=== PATIENT | female | born 1990 | race Caucasian/White ===

== ENCOUNTER 2023-06-23 13:55 | Inpatient (IN) | payer MEDICAID, OTHER ==
[2023-06-23 14:54] LABS: Basophils % (A) 1 %; Eosinophils # (A) 0.1 k/uL (0-0.7); Eosinophils % (A) 2 %; HCT 38.8 % (34.0-46.0); HGB 12.4 gm/dL (11.4-16.0); Lymphocytes # (A) 1.9 k/uL (1.0-4.8); Lymphocytes % (A) 43 %; MCH 31.6 pg (25.0-35.0); MCHC 31.8 g/dL (31.0-37.0); MCV 99.3 fL (80.0-100.0); Monocytes # (A) 0.3 k/uL (0-1.0); Monocytes % (A) 7 %; Neutrophils # (A) 1.9 k/uL (1.3-7.7); Neutrophils % (A) 44 %; Platelet Count 107 k/uL (150-450); RBC 3.91 m/uL (3.80-5.40); RDW 12.8 % (11.5-15.5); WBC 4.4 k/uL (3.8-10.6)
[2023-06-23 14:56] LABS: Glucose,Whole Blood 114 mg/dL (70-110)
[2023-06-23] MEDS: SODIUM CHLORIDE 0.9% 1,000 ML IV ONE (15:03)
[2023-06-23 15:09] LABS: ALT 117 U/L (4-34); AST 143 U/L (14-36); Acetaminophen <10.0 ug/mL; African American GFR (CKD) >90 (>60 ml/min/1.73 sqM); Albumin 3.1 g/dL (3.5-5.0); Alcohol <10 mg/dL; Alkaline Phosphatase 78 U/L (38-126); Anion Gap 6 mmol/L; Blood Urea Nitrogen 10 mg/dL (7-17); Calcium 8.6 mg/dL (8.4-10.2); Carbon Dioxide 29 mmol/L (22-30); Chloride 103 mmol/L (98-107); Creatine Kinase 39 U/L (30-135); Glucose 96 mg/dL (74-99); Magnesium 1.5 mg/dL (1.6-2.3); Non-African American GFR(CKD) >90 (>60 ml/min/1.73 sqM); Potassium 3.8 mmol/L (3.5-5.1); Salicylate <1.0 mg/dL; Sodium 138 mmol/L (137-145); Total Bilirubin 0.4 mg/dL (0.2-1.3)
[2023-06-23 15:15] LABS: Partial Thromboplastin Time 25.2 sec (22.0-30.0); Prothrombin Time 10.7 sec (10.0-12.5)
[2023-06-23 15:16] LABS: Amphetamine Screen,Urine Not Detected (NotDetected); Barbiturate Screen,Urine Not Detected (NotDetected); Benzodiazepines Screen,Urine Detected (NotDetected); Cocaine Screen,Urine Not Detected (NotDetected); Methadone Screen, Urine Detected (NotDetected); Opiate Screen,Urine Not Detected (NotDetected); Oxycodone Screen, Urine Not Detected (NotDetected); Phencyclidine Screen,Urine Not Detected (NotDetected); Tricyclic Antidepressant,Urine Not Detected (NotDetected); Urn Cannabinoid Scrn Not Detected (NotDetected)
--- NOTE | 2023-06-23 15:50 | XR ---
EXAMINATION TYPE: XR chest 2V DATE OF EXAM: 06/23/2023 COMPARISON: None INDICATION: Altered mental status TECHNIQUE: Frontal and lateral views of the chest are obtained. FINDINGS: The heart size is normal. The pulmonary vasculature is normal. The lungs are clear. IMPRESSION: 1. No acute pulmonary process.
--- NOTE | 2023-06-23 15:51 | CT ---
EXAMINATION TYPE: CT brain wo con DATE OF EXAM: 06/23/2023 COMPARISON: INDICATION: AMS DLP: 1154.4 mGycm, Automated exposure control for dose reduction was used. CONTRAST: None CT of the brain is performed utilizing 3 mm thick sections through the posterior fossa and 3 mm thick sections through the remaining calvarium. Study is performed within 24 hours of arrival to the hosp ital. No abnormal hyperdensity is present to suggest an acute intracranial hemorrhage. No mass lesion is evident. No acute infarcts are evident. Ventricles and sulci are appropriate for the patient age. There is opacification of maxillary sinuses. Remaining paranasal sinuses and mastoid air cells are cl ear. IMPRESSION: 1. No acute intracranial process. Follow-up MRI could be performed as clinically indicated.
[2023-06-23] MEDS: MAGNESIUM SULFATE-D5W PMX 1 GM in DEXTROSE/WATER 1 100ML.BAG IVPB ONE ×2 (16:56→21:28)
--- NOTE | 2023-06-23 17:45 | ED ---
Altered Mental Status HPI - General Chief Complaint: Altered Mental Status Stated Complaint: AMS Time Seen by Provider: 06/23/23 14:16 Source: EMS, RN notes reviewed Mode of arrival: EMS Limitations: altered mental status - History of Present Illness Initial Comments: 42-year-old female from [place] where she was admitted for cocaine and alcohol abuse several days ago who is brought in today for evaluation because of decreased level of consciousness slurred speech. Unclear whether she had gotten a hold of any other illicit drugs no trauma reported no fevers chills sweats no nausea no vomiting. Patient denies any other drugs. MD Complaint: altered mental status, confusion, decreased responsiveness - Related Data Allergies Allergy/AdvReac Type Severity Reaction Status Date / Time No Known Allergies Allergy Verified 06/23/23 14:20 Review of Systems ROS Statement: Those systems with pertinent positive or pertinent negative responses have been documented in the HPI. ROS Other: All systems not noted in ROS Statement are negative. Past Medical History Past Medical History: No Reported History History of Any Multi-Drug Resistant Organisms: None Reported Past Surgical History: No Surgical Hx Reported Past Psychological History: No Psychological Hx Reported Smoking Status: Current every day smoker Past Alcohol Use History: Abuse Past Drug Use History: Cocaine, Marijuana General Exam - General Exam Comments Initial Comments: This is a well-developed well-nourished awake alert with lethargic and somnolent female who is oriented x 3 Limitations: altered mental status General appearance: alert, lethargic Head exam: Present: atraumatic, normocephalic, normal inspection Eye exam: Present: normal appearance, PERRL, EOMI. Absent: scleral icterus, conjunctival injection, periorbital swelling ENT exam: Present: normal exam, mucous membranes moist Neck exam: Present: normal inspection, full ROM, other (Stridor JVD or bruits). Absent: tenderness, meningismus, lymphadenopathy Respiratory exam: Present: normal lung sounds bilaterally. Absent: respiratory distress, wheezes, rales, rhonchi, stridor Cardiovascular Exam: Present: normal rhythm, tachycardia, normal heart sounds. Absent: systolic murmur, diastolic murmur, rubs, gallop, clicks GI/Abdominal exam: Present: soft, normal bowel sounds. Absent: distended, tenderness, guarding, rebound, rigid Extremities exam: Present: normal inspection, full ROM, normal capillary refill. Absent: tenderness, pedal edema, joint swelling, calf tenderness Back exam: Present: normal inspection Neurological exam: Present: alert, oriented X3, CN II-XII intact Psychiatric exam: Present: normal affect, normal mood Skin exam: Present: warm, dry, intact, normal color. Absent: rash Course Vital Signs 06/23/23 14:15 Temperature 97.2 F L Pulse Rate 120 H Respiratory 22 Rate Blood Pressure 117/89 O2 Sat by Pulse 100 Oximetry Medical Decision Making - Medical Decision Making Patient apparently had responded somewhat to Narcan given by paramedics before arrival. Patient drug screen is positive for methadone and benzodiazepines. CT negative workup for the most part those are negative patient will be admitted for inpatient evaluation. Was pt. sent in by a medical professional or institution (, PA, METAL ROLLING MILL OPERATOR, urgent care, hospital, or group home...) When possible be specific @ -No Did you speak to anyone other than the patient for history (EMS, parent, family, police, friend...)? What history was obtained from this source @ -Medics Did you review nursing and triage notes (agree or disagree)? Why? @ -I reviewed and agree with nursing and triage notes Were old charts reviewed (outside hosp., previous admission, EMS record, old EKG, old radiological studies, urgent care reports/EKG's, group home records)? Report findings @ -[facility] old charts were reviewed Differential Diagnosis (chest pain, altered mental status, abdominal pain women, abdominal pain men, vaginal bleeding, weakness, fever, dyspnea, syncope, headache, dizziness, GI bleed, back pain, seizure, CVA, palpatations, mental health, musculoskeletal)? @ -Altered mental status EKG interpreted by me (3pts min.). @ -As above EKG interpreted by me sinus tachycardia rate of 100 [place] interval 127 QRS duration 90 QT/QTc 333/[address]-T wave changes X-rays interpreted by me (1pt min.). @ -Interpreted by me no acute process CT interpreted by me (1pt min.). @ -ET brain interpreted by me no acute findings U/S interpreted by me (1pt. min.). @ -None done What testing was considered but not performed or refused? (CT, X-rays, U/S, labs)? Why? @ -None What meds were considered but not given or refused? Why? @ -None Did you discuss the management of the patient with other professionals (professionals i.e. , PA, METAL ROLLING MILL OPERATOR, lab, RT, psych nurse, mental health social worker, metal drilling machine operator, teacher, transit authority police officer, case liner)? Give summary @ -No Was smoking cessation discussed for >3mins.? @ -No Was critical care preformed (if so, how long)? @ -No Were there social determinants of health that impacted care today? How? (Homelessness, low income, unemployed, alcoholism, drug addiction, transportation, low edu. Level, literacy, decrease access to med. care, [facility], rehab)? @ -Absence abuse Was there de-escalation of care discussed even if they declined (Discuss DNR or withdrawal of care, Hospice)? DNR status @ -No What co-morbidities impacted this encounter? (DM, HTN, Smoking, COPD, CAD, Cancer, CVA, ARF, Chemo, Hep., AIDS, mental health diagnosis, sleep apnea, morbid obesity)? @ -None Was patient admitted / discharged? Hospital course, mention meds given and route, prescriptions, significant lab abnormalities, going to OR and other pertinent info. @ -Hospital course was admitted for evaluation Undiagnosed new problem with uncertain prognosis? @ -No Drug Therapy requiring intensive monitoring for toxicity (Heparin, Nitro, In sulin, Cardizem)? @ -No Were any procedures done? @ -No Diagnosis/symptom? @ -3 mental status, history of alcohol abuse history of substance abuse Acute, or Chronic, or Acute on Chronic? @ -Acute Uncomplicated (without systemic symptoms) or Complicated (systemic symptoms)? @ -Complicated Side effects of treatment? @ -No Exacerbation, Progression, or Severe Exacerbation? @ -No Poses a threat to life or bodily function? How? (Chest pain, [place], NH, pneumonia, PE, COPD, DKA, ARF, appy, cholecystitis, CVA, Diverticulitis, Homicidal, Suicidal, threat to staff... and all critical care pts) @ -Tensional - Lab Data Result diagrams: 06/23/23 14:43 06/23/23 14:43 Lab Results 06/23/23 06/23/23 06/23/23 Range/Units 14:43 14:43 14:43 WBC 4.4 (3.8-10.6) k/uL RBC 3.91 (3.80-5.40) m/uL Hgb 12.4 (11.4-16.0) gm/dL Hct 38.8 (34.0-46.0) % MCV 99.3 (80.0-100.0) fL MCH 31.6 (25.0-35.0) pg MCHC 31.8 (31.0-37.0) g/dL RDW 12.8 (11.5-15.5) % Plt Count 107 L (150-450) k/uL MPV 9.0 Neutrophils % 44 % Lymphocytes % 43 % Monocytes % 7 % Eosinophils % 2 % Basophils % 1 % Neutrophils # 1.9 (1.3-7.7) k/uL Lymphocytes # 1.9 (1.0-4.8) k/uL Monocytes # 0.3 (0-1.0) k/uL Eosinophils # 0.1 (0-0.7) k/uL Basophils # 0.0 (0-0.2) k/uL PT 10.7 (10.0-12.5) sec INR 1.0 (<1.2) APTT 25.2 (22.0-30.0) sec Sodium (137-145) mmol/L Potassium (3.5-5.1) mmol/L Chloride (98-107) mmol/L Carbon Dioxide (22-30) mmol/L Anion Gap mmol/L BUN (7-17) mg/dL Creatinine (0.52-1.04) mg/dL Est GFR (CKD-EPI)AfAm (>60 ml/min/1.73 sqM) Est GFR (CKD-EPI)NonAf (>60 ml/min/1.73 sqM) Glucose (74-99) mg/dL POC Glucose (mg/dL) (70-110) mg/dL POC Glu Apparel Patternmaker ID Calcium (8.4-10.2) mg/dL Magnesium (1.6-2.3) mg/dL Total Bilirubin (0.2-1.3) mg/dL AST (14-36) U/L ALT (4-34) U/L Alkaline Phosphatase (38-126) U/L Ammonia (<30) umol/L Creatine Kinase (30-135) U/L Troponin I (0.000-0.034) ng/mL Total Protein (6.3-8.2) g/dL Albumin (3.5-5.0) g/dL Urine HCG, Qual (Not Detectd) Salicylates mg/dL Urine Opiates Screen Not Detected (NotDetected) Ur Oxycodone Screen Not Detected (NotDetected) Urine Methadone Screen Detected H (NotDetected) Acetaminophen ug/mL Ur Barbiturates Screen Not Detected (NotDetected) U Tricyclic Antidepress Not Detected (NotDetected) Ur Phencyclidine Scrn Not Detected (NotDetected) Ur Amphetamines Screen Not Detected (NotDetected) U Methamphetamines Scrn Not Detected (NotDetected) U Benzodiazepines Scrn Detected H (NotDetected) Urine Cocaine Screen Not Detected (NotDetected) U Marijuana (THC) Screen Not Detected (NotDetected) Serum Alcohol mg/dL 06/23/23 06/23/23 06/23/23 Range/Units 14:43 14:43 14:43 WBC (3.8-10.6) k/uL RBC (3.80-5.40) m/uL Hgb (11.4-16.0) gm/dL Hct (34.0-46.0) % MCV (80.0-100.0) fL MCH (25.0-35.0) pg MCHC (31.0-37.0) g/dL RDW (11.5-15.5) % Plt Count (150-450) k/uL MPV Neutrophils % % Lymphocytes % % Monocytes % % Eosinophils % % Basophils % % Neutrophils # (1.3-7.7) k/uL Lymphocytes # (1.0-4.8) k/uL Monocytes # (0-1.0) k/uL Eosinophils # (0-0.7) k/uL Basophils # (0-0.2) k/uL PT (10.0-12.5) sec INR (<1.2) APTT (22.0-30.0) sec Sodium 138 (137-145) mmol/L Potassium 3.8 (3.5-5.1) mmol/L Chloride 103 (98-107) mmol/L Carbon Dioxide 29 (22-30) mmol/L Anion Gap 6 mmol/L BUN 10 (7-17) mg/dL Creatinine 0.53 (0.52-1.04) mg/dL Est GFR (CKD-EPI)AfAm >90 (>60 ml/min/1.73 sqM) Est GFR (CKD-EPI)NonAf >90 (>60 ml/min/1.73 sqM) Glucose 96 (74-99) mg/dL POC Glucose (mg/dL) (70-110) mg/dL POC Glu Apparel Patternmaker ID Calcium 8.6 (8.4-10.2) mg/dL Magnesium 1.5 L (1.6-2.3) mg/dL Total Bilirubin 0.4 (0.2-1.3) mg/dL AST 143 H (14-36) U/L ALT 117 H (4-34) U/L Alkaline Phosphatase 78 (38-126) U/L Ammonia (<30) umol/L Creatine Kinase 39 (30-135) U/L Troponin I <0.012 (0.000-0.034) ng/mL Total Protein 6.0 L (6.3-8.2) g/dL Albumin 3.1 L (3.5-5.0) g/dL Urine HCG, Qual Not Detected (Not Detectd) Salicylates <1.0 mg/dL Urine Opiates Screen (NotDetected) Ur Oxycodone Screen (NotDetected) Urine Methadone Screen (NotDetected) Acetaminophen <10.0 ug/mL Ur Barbiturates Screen (NotDetected) U Tricyclic Antidepress (NotDetected) Ur Phencyclidine Scrn (NotDetected) Ur Amphetamines Screen (NotDetected) U Methamphetamines Scrn (NotDetected) U Benzodiazepines Scrn (NotDetected) Urine Cocaine Screen (NotDetected) U Marijuana (THC) Screen (NotDetected) Serum Alcohol <10 mg/dL 06/23/23 06/23/23 Range/Units 14:43 14:54 WBC (3.8-10.6) k/uL RBC (3.80-5.40) m/uL Hgb (11.4-16.0) gm/dL Hct (34.0-46.0) % MCV (80.0-100.0) fL MCH (25.0-35.0) pg MCHC (31.0-37.0) g/dL RDW (11.5-15.5) % Plt Count (150-450) k/uL MPV Neutrophils % % Lymphocytes % % Monocytes % % Eosinophils % % Basophils % % Neutrophils # (1.3-7.7) k/uL Lymphocytes # (1.0-4.8) k/uL Monocytes # (0-1.0) k/uL Eosinophils # (0-0.7) k/uL Basophils # (0-0.2) k/uL PT (10.0-12.5) sec INR (<1.2) APTT (22.0-30.0) sec Sodium (137-145) mmol/L Potassium (3.5-5.1) mmol/L Chloride (98-107) mmol/L Carbon Dioxide (22-30) mmol/L Anion Gap mmol/L BUN (7-17) mg/dL Creatinine (0.52-1.04) mg/dL Est GFR (CKD-EPI)AfAm (>60 ml/min/1.73 sqM) Est GFR (CKD-EPI)NonAf (>60 ml/min/1.73 sqM) Glucose (74-99) mg/dL POC Glucose (mg/dL) 114 H (70-110) mg/dL POC Glu Apparel Patternmaker ID Natalia Landaverde Calcium (8.4-10.2) mg/dL Magnesium (1.6-2.3) mg/dL Total Bilirubin (0.2-1.3) mg/dL AST (14-36) U/L ALT (4-34) U/L Alkaline Phosphatase (38-126) U/L Ammonia 42 H (<30) umol/L Creatine Kinase (30-135) U/L Troponin I (0.000-0.034) ng/mL Total Protein (6.3-8.2) g/dL Albumin (3.5-5.0) g/dL Urine HCG, Qual (Not Detectd) Salicylates mg/dL Urine Opiates Screen (NotDetected) Ur Oxycodone Screen (NotDetected) Urine Methadone Screen (NotDetected) Acetaminophen ug/mL Ur Barbiturates Screen (NotDetected) U Tricyclic Antidepress (NotDetected) Ur Phencyclidine Scrn (NotDetected) Ur Amphetamines Screen (NotDetected) U Methamphetamines Scrn (NotDetected) U Benzodiazepines Scrn (NotDetected) Urine Cocaine Screen (NotDetected) U Marijuana (THC) Screen (NotDetected) Serum Alcohol mg/dL Disposition Clinical Impression: Altered mental status, Delirium due to general medical condition, Alcohol abuse, Substance abuse Disposition: ADMITTED IP TO THIS [facility] Condition: Fair Referrals: None,Stated [Primary Care Provider] - 1-2 days Time of Disposition: 16:50 Decision Date: 06/23/23 Decision Time: 16:50
[2023-06-23] MEDS ORDERED: NALOXONE 0.4 MG/ML 1 ML VIAL IV PRN (17:49)
[2023-06-23] MEDS: SODIUM CHLORIDE 0.9% 1,000 ML IV SCH (18:09)
[2023-06-23] MEDS ORDERED: Magnesium Replacement Protocol 1 EACH MISC MISCELLANE PRN (19:16)
[2023-06-23] MEDS: LACTULOSE 20 GM/30 ML CUP PO ONE (21:28)
[2023-06-23] MEDS: ONDANSETRON 4 MG/2 ML VIAL IVP SCH (21:28)
[2023-06-24] MEDS: PANTOPRAZOLE 40 MG/10 ML VIAL IVP SCH (09:14)
[2023-06-24 09:43] LABS: ALT 98 U/L (8-44); AST 112 U/L (13-35); Albumin 3.2 g/dL (3.8-4.9); Albumin/Globulin Ratio 1.45 Ratio (1.60-3.17); Alkaline Phosphatase 61 U/L (41-126); Blood Urea Nitrogen 7.8 mg/dL (9.0-27.0); Calcium 8.4 mg/dL (8.7-10.3); Carbon Dioxide 28.7 mmol/L (21.6-31.8); Chloride 104 mmol/L (96-109); Globulin 2.2 g/dL (1.6-3.3); Glucose 76 mg/dL (70-110); Magnesium 2.1 mg/dL (1.5-2.4); Potassium 4.1 mmol/L (3.5-5.5); Sodium 140 mmol/L (135-145); Total Bilirubin 0.3 mg/dL (0.3-1.2); Total Protein 5.4 g/dL (6.2-8.2)
--- NOTE | 2023-06-24 12:15 | US ---
EXAMINATION TYPE: US abdomen limited DATE OF EXAM: 06/24/2023 Exam done portable COMPARISON: NONE CLINICAL INDICATION: Female, 32 years old with history of Transaminitis; TECHNIQUE: Multiple sonographic images of the right upper quadrant are obtained. FINDINGS: EXAM MEASUREMENTS: Liver Length: 15.2 cm Gallbladder Wall: 0.2 cm CBD: 0.4 cm Right Kidney: 11.7 x 5.3 x 4.8 cm Pancreas: visualized portions wnl, limited by overlying midline bowel gas Liver: heterogeneous Gallbladder: wnl Evidence for sonographic Orellana's sign: no CBD: visualized portions wnl, limited by overlying bowel gas Right Kidney: wnl IMPRESSION: 1. Markedly coarsened echotexture of the liver possibly indicating cirrhosis. Clinical correlation is recommended. MRI of the liver might be useful for further evaluation if clinically indicated. 2. Normal gallbladder and biliary tree. 3. Limited evaluation of the pancreas by bowel gas.
[2023-06-24] MEDS: busPIRone HCl 10 MG TAB PO SCH (12:16)
[2023-06-24] MEDS: LOPERAMIDE 2 MG CAP PO PRN (12:16)
[2023-06-24] MEDS: GABAPENTIN 400 MG CAP PO SCH (12:17)
[2023-06-24] MEDS: LACTULOSE 20 GM/30 ML CUP PO SCH (12:18)
[2023-06-24] MEDS: DIVALPROEX 500 MG TABLET.DR PO SCH (12:18)
[2023-06-24] MEDS: PALIPERIDONE 6 MG TAB.ER.24 PO SCH (12:18)
[2023-06-24] MEDS ORDERED: LORazepam 1 MG/0.5 ML VIAL IV PRN (13:08)
[2023-06-24] MEDS ORDERED: LORazepam 0.5 MG TAB PO PRN (13:08)
--- NOTE | 2023-06-24 13:08 | P.HPIM ---
History of Present Illness H&P Date: 06/24/23 Chief Complaint: Altered mental status * 32-year-old patient with history of polysubstance use presents from [place] where she was admitted for history of alcohol use disorder, history of cocaine use with presentation of decreased level of consciousness and impaired speech. At the time of presentation in ER patient did appear disoriented and a CT head was obtained which was negative for acute intracranial process * Further workup initiated in ER included serum chemistry which showed sodium 138 potassium 3.8 chloride 103 BUN 10 creatinine 0.53, CBC showed WBC 4.4 he moglobin 12.4 hematocrit 38 platelet count of 107 INR of 1 liver profile obtained showed ALT of 117, AST of 143 bilirubin of 0.4 magnesium of 1.5 troponin within normal limits urine drug screen was obtained which was positive for methadone, benzodiazepine * Patient states she went to [place] yesterday and had last drink was actually yesterday just before going to [place] * Patient to be admitted to medical floor with consultation from neurology for evaluation to rule out seizure episode REVIEW OF SYSTEMS: Confusion, slurred speech on admission CONSTITUTIONAL: No fever, no malaise, no fatigue. HEENT: No recent visual problems or hearing problems. Denied any sore throat. CARDIOVASCULAR: No chest pain, orthopnea, PND, no palpitations, no syncope. PULMONARY: No shortness of breath, no cough, no hemoptysis. GASTROINTESTINAL: No diarrhea, no nausea, no vomiting, no abdominal pain. NEUROLOGICAL: Confusion, slurred speech on admission HEMATOLOGICAL: Denies any bleeding or petechiae. GENITOURINARY: Denies any burning micturition, frequency, or urgency. MUSCULOSKELETAL/RHEUMATOLOGICAL: Denies any joint pain, swelling, or any muscle pain. ENDOCRINE: Denies any polyuria or polydipsia. PHYSICAL EXAMINATION: GENERAL: The patient is alert and oriented x3, not in any acute distress. Well developed, well nourished. HEENT: Pupils are round and equally reacting to light. EOMI. Normocephalic, atraumatic. No pharyngeal erythema. No thyromegaly. CARDIOVASCULAR: S1 and S2 present. No murmurs, rubs, or gallops. PULMONARY: Chest is clear to auscultation, no wheezing or crackles. ABDOMEN: Soft, nontender, nondistended, normoactive bowel sounds. No palpable organomegaly. MUSCULOSKELETAL: No joint swelling or deformity. EXTREMITIES: No cyanosis, clubbing, or pedal edema. NEUROLOGICAL: Assessment and plan * Acute toxic metabolic encephalopathy * Elevated ammonia levels * Acute transaminitis secondary to polysubstance use * Alcohol use disorder * Hypomagnesemia * In regards to toxic metabolic encephalopathy, CT head negative, ammonia levels elevated, continue patient on lactulose * In regards to hepatic encephalopathy, continue lactulose, follow-up on liver profile, ultrasound right upper quadrant ordered * Regards to history of alcohol use, patient was detoxed and was at [place] * In regards to hypomagnesemia magnesium levels replaced * Status full code Past Medical History Past Medical History: No Reported History History of Any Multi-Drug Resistant Organisms: None Reported Past Surgical History: No Surgical Hx Reported Past Psychological History: No Psychological Hx Reported Smoking Status: Current every day smoker Past Alcohol Use History: Abuse Past Drug Use History: Cocaine, Marijuana Medications and Allergies Home Medications Medication Instructions Recorded Confirmed Type Acetaminophen [Tylenol] 650 mg PO Q4H PRN MDD 2,600mg 06/23/23 06/23/23 History Calcium, Magnesium, Zinc, With 1 tab PO TID PRN 06/23/23 06/23/23 History Vitamin D Chlorpheniramine Maleate 4 mg PO Q4H PRN 06/23/23 06/23/23 History [Chlor-Trimeton] Divalproex Sodium [Depakote] 500 mg PO BID 06/23/23 06/23/23 History Gabapentin [Neurontin] 400 mg PO TID 06/23/23 06/23/23 History Hyoscyamine Sulfate [Levsin] 0.125 mg PO QID PRN 06/23/23 06/23/23 History Ibuprofen [Motrin Ib] 600 mg PO Q6H PRN 06/23/23 06/23/23 History LORazepam [Ativan] 1 - 2 mg PO Q4H 06/23/23 06/23/23 History Loperamide HCl [Imodium A-D] 4 mg PO QID PRN MDD 16 mg 06/23/23 06/23/23 History Methadone HCl [Methadone Intensol] 105 mg PO DAILY 06/23/23 06/23/23 History Multivitamins, Thera [Multivitamin 1 tab PO DAILY 06/23/23 06/23/23 History (formulary)] Paliperidone [Invega] 6 mg PO DAILY 06/23/23 06/23/23 History Thiamine [Vitamin B-1] 100 mg PO DAILY 06/23/23 06/23/23 History busPIRone HCl [Buspar] 20 mg PO TID 06/23/23 06/23/23 History ondansetron HCL [Zofran] 8 mg PO Q6H PRN 06/23/23 06/23/23 History traZODone HCL [Desyrel] 50 mg PO HS PRN 06/23/23 06/23/23 History Allergies Allergy/AdvReac Type Severity Reaction Status Date / Time CONTROL PILLS Allergy Unknown Uncoded 06/23/23 18:31 Physical Exam Vitals: Vital Signs Temp Pulse Pulse Resp BP BP Pulse Ox 06/24/23 08:45 98.4 F 67 18 119/86 97 06/24/23 08:00 75 17 110/75 98 06/24/23 05:52 67 19 110/75 98 06/24/23 05:00 74 20 121/74 96 06/24/23 01:04 82 19 120/100 95 06/23/23 23:42 61 13 98/76 98 06/23/23 21:35 87 22 103/70 96 06/23/23 21:00 85 14 104/84 98 06/23/23 14:15 97.2 F L 120 H 22 117/89 100 Results CBC & Chem 7: 06/23/23 14:43 06/24/23 03:04 Labs: Abnormal Lab Results - Last 24 Hours (Table) 06/23/23 06/23/23 06/23/23 Range/Units 14:43 14:43 14:43 Plt Count 107 L (150-450) k/uL POC Glucose (mg/dL) (70-110) mg/dL Magnesium 1.5 L (1.6-2.3) mg/dL AST 143 H (14-36) U/L ALT 117 H (4-34) U/L Ammonia (<30) umol/L Total Protein 6.0 L (6.3-8.2) g/dL Albumin 3.1 L (3.5-5.0) g/dL Urine Methadone Screen Detected H (NotDetected) U Benzodiazepines Scrn Detected H (NotDetected) 06/23/23 06/23/23 06/24/23 Range/Units 14:43 14:54 08:22 Plt Count (150-450) k/uL POC Glucose (mg/dL) 114 H (70-110) mg/dL Magnesium (1.6-2.3) mg/dL AST (14-36) U/L ALT (4-34) U/L Ammonia 42 H 55 H (<30) umol/L Total Protein (6.3-8.2) g/dL Albumin (3.5-5.0) g/dL Urine Methadone Screen (NotDetected) U Benzodiazepines Scrn (NotDetected)
[2023-06-24] MEDS: LORazepam 1 MG TAB PO PRN (15:08)
[2023-06-24] MEDS: ACETAMINOPHEN TAB 325 MG TAB PO PRN (19:35)
[2023-06-24] MEDS: traZODone HCL 50 MG TAB PO PRN (22:32)
--- NOTE | 2023-06-24 23:36 | P.CNNES ---
History of Present Illness Consult date: 06/24/23 Requesting physician: Danielle Rhoades Reason for Consult: Impaired mentation concern for seizure from withdrawal from substance use History of Present Illness: Patient is a 32-year-old female with history of polysubstance abuse, seizure disorder, was brought to the hospital by ambulance yesterday at 1:55 PM for seizure. Patient was admitted to [facility] for polysubstance abuse, on , 06/21/2023. Patient states that her first seizure was in early 20s which she felt was a withdrawal seizure. Patient has history of shooting cocaine, and alcoholism. She usually drinks 1 pint of vodka per day, daily for last 3 years. She used to live with her ex- and has 4 children. However patient claims that he "threw her out on the street", and he is taking care of the kids. Patient has become homeless in the last couple weeks, and living out in the street. Patient gets seizures about once or twice a year. Patient was admitted to [facility] voluntarily and she does not know what happened and why she was transferred, probably she was not acting right. EMS flowsheet is not available in the chart. Patient at present complaining of stomach hurting bad, not feeling good, lethargic. She claims that she takes gabapentin for seizures. She has not seen a neurologist. Does not remember if she ever had an EEG done. Vital signs on arrival blood pressure 117/89, pulse rate 120, temperature 97.2. Blood test shows normal CBC, PT PTT, normal Chem-7. AST is 143, ALT 117, CK is normal, troponin negative. Urine hCG negative, urine drug screen positive for methadone and benzodiazepine. EKG shows sinus tachycardia, CT brain without contrast showed no acute process. I personally reviewed CT head agree with the findings. Patient's abdominal ultrasound revealed markedly coarsened echotexture of the liver possibly indicating cirrhosis. Clinical correlation is recommended. MRI of the liver might be useful for further evaluation. Normal gallbladder and biliary tree. Patient has history of smoking and shooting cocaine, as well as alcoholism as mentioned above. Review of Systems Significant for whole body hurting, abdominal pain, denies any fever or chills although she feels hot/cold all the time. Denies any nausea vomiting diarrhea. Stomach is hurting. Patient does admit having anxiety but no depression. Denies any cough or phlegm. All other review of system reviewed noncontributory. Past Medical History Past Medical History: No Reported History History of Any Multi-Drug Resistant Organisms: None Reported Past Surgical History: No Surgical Hx Reported Past Psychological History: No Psychological Hx Reported Smoking Status: Current every day smoker Past Alcohol Use History: Abuse Past Drug Use History: Cocaine, Marijuana Medications and Allergies Home Medications Medication Instructions Recorded Confirmed Type Acetaminophen [Tylenol] 650 mg PO Q4H PRN MDD 2,600mg 06/23/23 06/23/23 History Calcium, Magnesium, Zinc, With 1 tab PO TID PRN 06/23/23 06/23/23 History Vitamin D Chlorpheniramine Maleate 4 mg PO Q4H PRN 06/23/23 06/23/23 History [Chlor-Trimeton] Divalproex Sodium [Depakote] 500 mg PO BID 06/23/23 06/23/23 History Gabapentin [Neurontin] 400 mg PO TID 06/23/23 06/23/23 History Hyoscyamine Sulfate [Levsin] 0.125 mg PO QID PRN 06/23/23 06/23/23 History Ibuprofen [Motrin Ib] 600 mg PO Q6H PRN 06/23/23 06/23/23 History LORazepam [Ativan] 1 - 2 mg PO Q4H 06/23/23 06/23/23 History Loperamide HCl [Imodium A-D] 4 mg PO QID PRN MDD 16 mg 06/23/23 06/23/23 History Methadone HCl [Methadone Intensol] 105 mg PO DAILY 06/23/23 06/23/23 History Multivitamins, Thera [Multivitamin 1 tab PO DAILY 06/23/23 06/23/23 History (formulary)] Paliperidone [Invega] 6 mg PO DAILY 06/23/23 06/23/23 History Thiamine [Vitamin B-1] 100 mg PO DAILY 06/23/23 06/23/23 History busPIRone HCl [Buspar] 20 mg PO TID 06/23/23 06/23/23 History ondansetron HCL [Zofran] 8 mg PO Q6H PRN 06/23/23 06/23/23 History traZODone HCL [Desyrel] 50 mg PO HS PRN 06/23/23 06/23/23 History Allergies Allergy/AdvReac Type Severity Reaction Status Date / Time CONTROL PILLS Allergy Unknown Uncoded 06/23/23 18:31 Physical Examination - Vital Signs Vital Signs: Vital Signs Temp Pulse Pulse Resp BP BP Pulse Ox 06/24/23 14:05 97.5 F L 77 16 119/76 96 06/24/23 08:45 98.4 F 67 18 119/86 97 06/24/23 08:00 75 17 110/75 98 06/24/23 05:52 67 19 110/75 98 06/24/23 05:00 74 20 121/74 96 06/24/23 01:04 82 19 120/100 95 06/23/23 23:42 61 13 98/76 98 06/23/23 21:35 87 22 103/70 96 06/23/23 21:00 85 14 104/84 98 Patient is a young female, in no acute distress. Patient is alert awake oriented to time place and person. Patient knows it is June 2023 and that she is in hospital and she believes it is in [facility]. She is actually from [facility] not from this side of [facility]. Speech and language functions are normal. Patient can name and repeat very well. No aphasia or dysarthria. Attention, concentration and fund of knowledge is adequate. On cranial nerve examination, pupils are equal, round and reacting to light, visual bender are full on confrontation, with no neglect on double simultaneous stimulation. Extraocular muscles are intact with no nystagmus. Face is symmetric, tongue protrudes to the midline. Palatal elevation and sensation normal, hearing and shoulder shrug normal, facial sensation normal. On muscle strength testing, there is no pronator drift and the strength is normal in arms and legs distally and proximally. Deep tendon reflexes are symmetric 1+ in the biceps and brachioradialis, 1+ at the knees, 2 ankles and plantars downgoing. Sensory to touch is equal with no neglect on double simultaneous stimulation. Cerebellar function showed some shakiness but no ataxia for [id number] testing. No dysdiadochokinesia. No ataxia for [id number] testing on either side. Tone and bulk of muscles normal. Gait deferred.. On general examination, there is no carotid bruit or murmur, S1-S2 audible. Chest is clear on consultation. Abdomen is soft nontender. No organomegaly, bowel sounds present. Peripheral pulses are present. No peripheral edema. Results - Laboratory Findings CBC and BMP: 06/23/23 14:43 06/24/23 03:04 Abnormal Lab Findings: Abnormal Labs 06/23/23 06/23/23 06/23/23 14:43 14:43 14:43 Plt Count 107 L BUN Creatinine POC Glucose (mg/dL) Calcium Magnesium 1.5 L AST 143 H ALT 117 H Ammonia Total Protein 6.0 L Albumin 3.1 L Albumin/Globulin Ratio Urine Methadone Screen Detected H U Benzodiazepines Scrn Detected H 06/23/23 06/23/23 06/24/23 14:43 14:54 03:04 Plt Count BUN 7.8 L Creatinine 0.5 L POC Glucose (mg/dL) 114 H Calcium 8.4 L Magnesium AST 112 H ALT 98 H Ammonia 42 H Total Protein 5.4 L Albumin 3.2 L Albumin/Globulin Ratio 1.45 L Urine Methadone Screen U Benzodiazepines Scrn 06/24/23 08:22 Plt Count BUN Creatinine POC Glucose (mg/dL) Calcium Magnesium AST ALT Ammonia 55 H Total Protein Albumin Albumin/Globulin Ratio Urine Methadone Screen U Benzodiazepines Scrn Assessment and Plan Assessment: * Patient with history of polysubstance abuse, admitted to [facility] for rehab on 06/21/2023, brought to the hospital for altered mental status. Patient states she has history of seizures, which she felt was related to substance use. Patient denies having any workup performed in the past. * Encephalopathy, likely hepatic encephalopathy with elevated ammonia 42. * History of alcoholism * History of substance use * Abnormal ultrasound, possible cirrhosis. * Anxiety disorder * Tremors, possibly from withdrawal, anxiety disorder versus side effect of Depakote. * Homeless state Plan: * Patient's seizure was likely related to alcohol and substance withdrawal. * Check EEG to evaluate for any epileptiform activity. * Patient currently on Depakote 500 mg twice daily. Depakote not a good choice because of her pre-existing possible cirrhosis, elevated ammonia which can get further worse from Depakote. I would suggest switching to another medication. * Further management based upon results of EEG. * Lactulose, for possible hepatic encephalopathy. * Thiamine, folate, multivitamin. * Watch for delirium tremens. * Patient informed of [place] state law of no driving unless seizure-free for 6 months, climbing ladders, operating dangerous machinery or unsupervised swimming. * sheetmetal trades worker intervention. * Dr. Jorje Anaya will resume neurology service in the morning. * Thank you for the consult.
[2023-06-25 08:33] LABS: HCT 34.3 % (37.2-46.3); HGB 11.1 g/dL (12.0-15.0); MCHC 32.4 g/dL (32.0-37.0); MCV 95.8 FL (80.0-97.0); Mean Platelet Volume 12.2 FL (9.5-12.2); NRBC Per 100 WBC 0 X 10*3/uL (0.00-0.01); Platelet Count 124 X 10*3/uL (140-440); RBC 3.58 X 10*6/uL (4.10-5.20); RDW 13.2 % (11.5-14.5); WBC 6.41 X 10*3/uL (4.50-10.00)
[2023-06-25 08:42] LABS: ALT 83 U/L (8-44); AST 87 U/L (13-35); Albumin 3.2 g/dL (3.8-4.9); Albumin/Globulin Ratio 1.52 Ratio (1.60-3.17); Alkaline Phosphatase 60 U/L (41-126); Blood Urea Nitrogen 4.5 mg/dL (9.0-27.0); Calcium 8.2 mg/dL (8.7-10.3); Carbon Dioxide 27.6 mmol/L (21.6-31.8); Chloride 105 mmol/L (96-109); Globulin 2.1 g/dL (1.6-3.3); Glucose 79 mg/dL (70-110); Sodium 141 mmol/L (135-145); Total Bilirubin 0.3 mg/dL (0.3-1.2); Total Protein 5.3 g/dL (6.2-8.2)
[2023-06-25] MEDS: FOLIC ACID 1 MG TAB PO SCH (09:22)
[2023-06-25] MEDS: THIAMINE 100 MG TAB PO SCH (09:22)
--- NOTE | 2023-06-25 13:33 | P.PN ---
Subjective Progress Note Date: 06/25/23 * 32-year-old patient with history of polysubstance use presents from [place] where she was admitted for history of alcohol use disorder, history of cocaine use with presentation of decreased level of consciousness and impaired speech. At the time of presentation in ER patient did appear disoriented and a CT head was obtained which was negative for acute intracranial process * Further workup initiated in ER included serum chemistry which showed sodium 138 potassium 3.8 chloride 103 BUN 10 creatinine 0.53, CBC showed WBC 4.4 hemoglobin 12.4 hematocrit 38 platelet count of 107 INR of 1 liver profile obtained showed ALT of 117, AST of 143 bilirubin of 0.4 magnesium of 1.5 troponin within normal limits urine drug screen was obtained which was positive for methadone, benzodiazepine * Patient states she went to [place] yesterday and had last drink was actually yesterday just before going to [place] * Patient to be admitted to medical floor with consultation from neurology for evaluation to rule out seizure episode * 06/25/23: Patient seen and evaluated bedside, liver profile trending down, ultrasound liver completed shows coarse echotexture concern for cirrhosis. Liver profile shows improvement in AST 87 ALT 83, confusion has improved, continue patient on lactulose PHYSICAL EXAMINATION: GENERAL: The patient is alert and oriented x3, not in any acute distress. Well developed, well nourished. HEENT: Pupils are round and equally reacting to light. EOMI. Normocephalic, atraumatic. No pharyngeal erythema. No thyromegaly. CARDIOVASCULAR: S1 and S2 present. No murmurs, rubs, or gallops. PULMONARY: Chest is clear to auscultation, no wheezing or crackles. ABDOMEN: Soft, nontender, nondistended, normoactive bowel sounds. No palpable organomegaly. MUSCULOSKELETAL: No joint swelling or deformity. EXTREMITIES: No cyanosis, clubbing, or pedal edema. NEUROLOGICAL: Assessment and plan * Acute toxic metabolic encephalopathy * Alcohol liver disease * Acute transaminitis secondary to polysubstance use * Alcohol use disorder * Hypomagnesemia * In regards to toxic metabolic encephalopathy, CT head negative, ammonia levels elevated, continue patient on lactulose * In regards to hepatic encephalopathy, continue lactulose, follow-up on liver profile, ultrasound right upper quadrant ordered * Regards to history of alcohol use, patient was detoxed and was at [facility] * In regards to hypomagnesemia magnesium levels replaced * Status full code Objective - Vital Signs Vital signs: Vital Signs Temp 97.8 F 06/25/23 07:53 Pulse 78 06/25/23 07:53 Resp 16 06/25/23 07:53 BP 117/81 06/25/23 07:53 Pulse Ox 99 06/25/23 07:53 FiO2 Intake & Output 06/24/23 06/25/23 06/25/23 18:59 06:59 18:59 Weight 78.018 kg Other: # Voids 1 4 4 - Labs CBC & Chem 7: 06/25/23 03:50 06/25/23 03:50 Labs: Abnormal Lab Results - Last 24 Hours (Table) 06/25/23 06/25/23 Range/Units 03:50 03:50 RBC 3.58 L (4.10-5.20) X 10*6/uL Hgb 11.1 L (12.0-15.0) g/dL Hct 34.3 L (37.2-46.3) % Plt Count 124 L (140-440) X 10*3/uL BUN 4.5 L (9.0-27.0) mg/dL Creatinine 0.5 L (0.6-1.5) mg/dL BUN/Creatinine Ratio 9.00 L (12.00-20.00) Ratio Calcium 8.2 L (8.7-10.3) mg/dL AST 87 H (13-35) U/L ALT 83 H (8-44) U/L Total Protein 5.3 L (6.2-8.2) g/dL Albumin 3.2 L (3.8-4.9) g/dL Albumin/Globulin Ratio 1.52 L (1.60-3.17) Ratio
[2023-06-25] MEDS: PANTOPRAZOLE 40 MG TABLET PO SCH (16:42)
--- NOTE | 2023-06-25 19:53 | P.PN ---
Subjective Progress Note Date: 06/25/23 I am seeing the patient for the first time during this admission. Please refer to Dr. Cook's note for further details. The patient she does have history of seizure and she was told by neurologist as an outpatient with stress-induced. She was started on Depakote for her mood recently a few weeks ago according to the patient. She does not recall the neurologist name she was following up with as an outpatient. She states that she does have heavy alcohol use as well as history of cocaine use and tobacco use. She stated that she used to use heroin in the past but has been sober for years. She was sent from [place] because of fusion. She currently feels she is doing much better and denies any headache, focal weakness and feels she is longer confused. Objective - Vital Signs Vital signs: Vital Signs Temp 98.4 F 06/25/23 14:00 Pulse 92 06/25/23 14:00 Resp 16 06/25/23 14:00 BP 119/64 06/25/23 14:00 Pulse Ox 97 06/25/23 14:00 FiO2 Intake & Output 06/25/23 06/25/23 06/26/23 06:59 18:59 06:59 Intake Total 250 Balance 250 Intake: Oral 250 Other: # Voids 4 4 - Exam General: Lying in bed and is not in acute distress. Neuro: The patient is awake alert oriented to self place. Correctly states the year but states the month is May. She correctly names objects correctly such as pen and watch. She is following some commands. No aphasia no neglect. Visual bender are full to confrontation. Extraocular movements intact no nystagmus. No facial weakness. No dysarthria Motor strength is 5 out of 5 throughout Cerebellar is normal [id number]. - Labs CBC & Chem 7: 06/25/23 03:50 06/25/23 03:50 Labs: Abnormal Lab Results - Last 24 Hours (Table) 06/25/23 06/25/23 Range/Units 03:50 03:50 RBC 3.58 L (4.10-5.20) X 10*6/uL Hgb 11.1 L (12.0-15.0) g/dL Hct 34.3 L (37.2-46.3) % Plt Count 124 L (140-440) X 10*3/uL BUN 4.5 L (9.0-27.0) mg/dL Creatinine 0.5 L (0.6-1.5) mg/dL BUN/Creatinine Ratio 9.00 L (12.00-20.00) Ratio Calcium 8.2 L (8.7-10.3) mg/dL AST 87 H (13-35) U/L ALT 83 H (8-44) U/L Total Protein 5.3 L (6.2-8.2) g/dL Albumin 3.2 L (3.8-4.9) g/dL Albumin/Globulin Ratio 1.52 L (1.60-3.17) Ratio Assessment and Plan Assessment: * Patient with history of polysubstance abuse, admitted to [facility] for lawrence ab on 06/21/2023, brought to the hospital for altered mental status. Patient states she has history of seizures, which she felt was related to substance use. Patient denies having any workup performed in the past. * Encephalopathy, likely hepatic encephalopathy with elevated ammonia 42. * History of seizures and she was told it was stress-induced by outpatient neurologist according to the patient. * History of alcoholism * History of substance use * Abnormal ultrasound, possible cirrhosis. * Anxiety disorder * Tremors, possibly from withdrawal, anxiety disorder versus side effect of Depakote. * Homeless state Plan: * Patient's seizure was likely related to alcohol and substance withdrawal. * Check EEG to evaluate for any epileptiform activity: Preliminary is no seizure or discharged * Patient currently on Depakote 500 mg twice daily states she was started on it recently by psychiatry team. I agree Depakote not a good choice because of her pre-existing possible cirrhosis, elevated ammonia which can get further worse from Depakote. I would suggest switching to another medication. Consider Lamictal but I will defer that decision to Dr. Koroma. * Lactulose, for possible hepatic encephalopathy. * On Thiamine, folate, multivitamin. * Watch for delirium tremens. * Patient informed of [place] state law of no driving unless seizure-free for 6 months, climbing ladders, operating dangerous machinery or unsupervised swimming. * With the patient to follow-up with her neurologist as an outpatient within 3 to 4 weeks. * Was counseled on cessation of alcohol, polysubstance use. No further neurological workup. Will sign off. Please reconsult if needed. Time with Patient: Less than 30
[2023-06-26] MEDS: LORazepam 1 MG TAB PO PRN (01:28)
[2023-06-26 05:26] LABS: ALT 95 U/L (4-34); African American GFR (CKD) >90 (>60 ml/min/1.73 sqM); Anion Gap 6 mmol/L; Blood Urea Nitrogen 6 mg/dL (7-17); Calcium 8.5 mg/dL (8.4-10.2); Carbon Dioxide 26 mmol/L (22-30); Chloride 106 mmol/L (98-107); Globulin 3.1 g/dL; Glucose 84 mg/dL (74-99); Non-African American GFR(CKD) >90 (>60 ml/min/1.73 sqM); Sodium 138 mmol/L (137-145); Total Bilirubin 0.5 mg/dL (0.2-1.3)
[2023-06-26 05:34] LABS: Total Protein 6.2 g/dL (6.3-8.2)
[2023-06-26 05:35] LABS: AST 109 U/L (14-36); Albumin 3.1 g/dL (3.5-5.0); Alkaline Phosphatase 64 U/L (38-126)
--- NOTE | 2023-06-26 05:52 | EEG ---
ELECTROENCEPHALOGRAM REPORT CLINICAL HISTORY: This is a 32-year-old woman with history of seizure and substance use, who has altered mental status. The video EEG is obtained to evaluate for seizure epileptiform activity. RELEVANT MEDICATIONS: Depakote, Neurontin. EEG TYPE: This is a routine 21-channel EEG with video using the 10/20 electrode placement system. DESCRIPTION: Drowsiness and stage 2 sleep state is obtained. There is no awake state noted. During stage II sleep architecture, there is diffuse K-complex with sleep spindles noted. There is no focal slowing. Interictal and ictal are none. ACTIVATION PROCEDURE: Photic stimulation did not evoke a posterior driving response. There is no abnormality during the photic stimulation. Hyperventilation is not performed. CLINICAL INTERPRETATION: The study was noted in drowsy and stage 2 sleep state. There is no focal slowing, epileptiform discharge, or seizure on the EEG. Clinical correlation is recommended. SOL / MOUNIKA: [id number] / MTDD
[2023-06-26 05:58] LABS: HCT 39.2 % (34.0-46.0); HGB 12.5 gm/dL (11.4-16.0); MCH 31.4 pg (25.0-35.0); MCHC 31.9 g/dL (31.0-37.0); MCV 98.5 fL (80.0-100.0); Mean Platelet Volume 9.4; Platelet Count 142 k/uL (150-450); RBC 3.98 m/uL (3.80-5.40); RDW 12.7 % (11.5-15.5)
[2023-06-26] MEDS: METHADONE 5 MG TAB PO SCH (13:30)
[2023-06-26] MEDS: METHADONE 10 MG TAB PO SCH (13:31)
[2023-06-26 15:14] VITALS: BP 93/62; PULSE 91; RESP 16; TEMP 98.3
--- NOTE | 2023-06-29 22:32 | P.DS ---
Providers Date of admission: 06/25/23 07:37 Attending physician: Mary Jackson Consults: 06/24/23 09:13 Consult Physician Routine Consulting Provider: Natasha Cook Consult Reason/Comments: Impaired mentation concern for seizure from withdrawal from substance use Do you want consulting provider notified?: Yes Primary care physician: Physician Nonstaff Hospital Course: Final Diagnosis Acute toxic metabolic encephalopathy Alcohol liver disease Acute transaminitis secondary to polysubstance use Alcohol use disorder Hypomagnesemia Hx of seizures related to alcohol withdrawal started on depakote outpatient Discharge Disposition Patient is stable to return to [facility]. Methadone has been resumed. Electrolytes have normalized. Patient to continue on lactulose. Neurology discussed lamictal vs. depakote but patient to follow up with her known neurologist and will continue on depakote on discharge. Patient informed of [place] state law of no driving unless seizure-free for 6 months, climbing ladders, operating dangerous machinery or unsupervised swimming. Follow up with PCP 2 to 3 days. Hospital Course This is a 32-year-old patient with history of polysubstance use presents from [place] where she was admitted for history of alcohol use disorder, history of cocaine use with presentation of decreased level of consciousness and impaired speech. At the time of presentation in ER patient did appear disoriented and a CT head was obtained which was negative for acute intracranial process. Further workup initiated in ER included serum chemistry which showed sodium 138 potassium 3.8 chloride 103 BUN 10 creatinine 0.53, CBC showed WBC 4.4 hemoglobin 12.4 hematocrit 38 platelet count of 107 INR of 1 liver profile obtained showed ALT of 117, AST of 143 bilirubin of 0.4 magnesium of 1.5 troponin within normal limits urine drug screen was obtained which was positive for methadone, benzodiazepine. Patient was brought in from [place] and last alcoholic beverage was the day before admission. Patient had liver ultrasound done shows coarse echo texture concern for cirrhosis. Liver profile shows improvement in AST 87 ALT 83, confusion has improved, continue patient on lactulose. Neurology was consulted to rule out seizure like activity. She was started on Depakote for her mood recently a few weeks ago according to the patient. EEG to evaluate for any epileptiform activity: Preliminary is no seizure or discharged. She does not recall the neurologist name she was following up with as an outpatient. Patient denies any headache, focal weakness and feels she is longer confused. Patient has no focal neurological deficits. No chest pain, no shortness of breath. Hemodynamically stable. Please see medication reconciliation for a list of current medications. Thank you for allowing us to participate in the care of this patient. The impression and plan of care has been dictated by Ashley Davila, Nurse Practitioner as directed. Dr. Manuel MD I have performed a history and physical examination and medical decision making of this patient, discussed the same with the dictator, and agree with the dictators assessment and plan as written, documented as a scribe. Based on total visit time, I have performed more than 50% of this visit. A Patient Condition at Discharge: Fair Plan - Discharge Summary Discharge Rx Participant: No New Discharge Prescriptions: New Lactulose [Cephulac] 20 gm PO BID 10 Days #600 ml Continue ondansetron HCL [Zofran] 8 mg PO Q6H PRN PRN Reason: Nausea Thiamine [Vitamin B-1] 100 mg PO DAILY Ibuprofen [Motrin Ib] 600 mg PO Q6H PRN PRN Reason: Pain Or Fever > 100.5 Loperamide HCl [Imodium A-D] 4 mg PO QID PRN MDD 16 mg PRN Reason: Diarrhea Gabapentin [Neurontin] 400 mg PO TID Calcium, Magnesium, Zinc, With Vitamin D 1 tab PO TID PRN PRN Reason: cramps/withdrawl symptoms LORazepam [Ativan] 1 - 2 mg PO Q4H Methadone HCl [Methadone Intensol] 105 mg PO DAILY Acetaminophen [Tylenol] 650 mg PO Q4H PRN MDD 2,600mg PRN Reason: Pain Or Fever > 100.5 Multivitamins, Thera [Multivitamin (formulary)] 1 tab PO DAILY traZODone HCL [Desyrel] 50 mg PO HS PRN PRN Reason: sleep Paliperidone [Invega] 6 mg PO DAILY busPIRone HCl [Buspar] 20 mg PO TID Divalproex Sodium [Depakote] 500 mg PO BID Discontinued Hyoscyamine Sulfate [Levsin] 0.125 mg PO QID PRN PRN Reason: cramps/secretions Chlorpheniramine Maleate [Chlor-Trimeton] 4 mg PO Q4H PRN PRN Reason: withdrawl symptoms/allergies Discharge Medication List Acetaminophen [Tylenol] 650 mg PO Q4H PRN MDD 2,600mg 06/23/23 [History] Calcium, Magnesium, Zinc, With Vitamin D 1 tab PO TID PRN 06/23/23 [History] Divalproex Sodium [Depakote] 500 mg PO BID 06/23/23 [History] Gabapentin [Neurontin] 400 mg PO TID 06/23/23 [History] Ibuprofen [Motrin Ib] 600 mg PO Q6H PRN 06/23/23 [History] LORazepam [Ativan] 1 - 2 mg PO Q4H 06/23/23 [History] Loperamide HCl [Imodium A-D] 4 mg PO QID PRN MDD 16 mg 06/23/23 [History] Methadone HCl [Methadone Intensol] 105 mg PO DAILY 06/23/23 [History] Multivitamins, Thera [Multivitamin (formulary)] 1 tab PO DAILY 06/23/23 [Hi story] Paliperidone [Invega] 6 mg PO DAILY 06/23/23 [History] Thiamine [Vitamin B-1] 100 mg PO DAILY 06/23/23 [History] busPIRone HCl [Buspar] 20 mg PO TID 06/23/23 [History] ondansetron HCL [Zofran] 8 mg PO Q6H PRN 06/23/23 [History] traZODone HCL [Desyrel] 50 mg PO HS PRN 06/23/23 [History] Lactulose [Cephulac] 20 gm PO BID 10 Days #600 ml 06/26/23 [Rx] Follow up Appointment(s)/Referral(s): Anh Berry MD [STAFF PHYSICIAN] - 1 Week ([employer] follow up for monitoring of the liver ) None,Stated [REFERRING] - 1-2 days Ambulatory/Diagnostic Orders: Comprehensive Metabolic Panel [LAB.AMB] Time Frame: 3 Days, Location: None Selected Magnesium [LAB.AMB] Location: None Selected Patient Instructions/Handouts: Epilepsy (DC) Activity/Diet/Wound Care/Special Instructions: Return to [place] Patient informed of [place] state law of no driving unless seizure-free for 6 months, climbing ladders, operating dangerous machinery or unsupervised swimming. Need to follow up with your neurologist as an outpatient within 3 to 4 weeks. Need to see a psychiatrist as an outpatient for further recommendations regarding depakote vs. other medication. Continue on lactulose and repeat blood work outpatient. Would recommend to see a GI doctor on discharge. Discharge Disposition: OTHER INSTITUTION NOT DEFINED
== END 2023-06-26 16:58 | disposition other institution (70) | DRG 52 ==
LOC: EC 13:55 → 5NMEDONC 17:49 → 4SSUR 20:37 → OBSVTOIN 06-25 07:37
PROVIDERS: ADMIT Internal Medicine; ATTEND Internal Medicine
PROC: 4A10X4Z Monitoring of Central Nervous Electrical Activity, External Approach (ICD-10-PCS; principal; 2023-06-25)
PROC: HZ2ZZZZ Detoxification Services for Substance Abuse Treatment (ICD-10-PCS; 2023-06-25)
DX: G92.8 Other toxic encephalopathy (principal); F14.188 Cocaine abuse with other cocaine-induced disorder; K76.82 Hepatic encephalopathy; E83.42 Hypomagnesemia; F05 Delirium due to known physiological condition; F17.210 Nicotine dependence, cigarettes, uncomplicated; F41.9 Anxiety disorder, unspecified; F10.139 Alcohol abuse with withdrawal, unspecified; F17.200 Nicotine dependence, unspecified, uncomplicated; G40.909 Epilepsy, unspecified, not intractable, without status epilepticus; I10 Essential (primary) hypertension; K70.9 Alcoholic liver disease, unspecified; Z71.6 Tobacco abuse counseling; Z79.899 Other long term (current) drug therapy; Z71.51 Drug abuse counseling and surveillance of drug abuser; Z59.00 Homelessness unspecified
CPT/HCPCS: 36415; 70450; 71046; 76705; 80053; 80143; 80179; 80306; 80320; 81025; 82140; 82550; 83735; 84484; 85025; 85027; 85610; 85730; 93005; 94760; 95816; 96361; 96365; 96366; 96375; 99285